=== PATIENT | male | born 1945 | race Caucasian/White ===

== ENCOUNTER 2016-11-02 01:47 | Observation (INO) ==
[2016-11-02] MEDS ORDERED: *HR* Dextrose 50 % in Water (Syg) 50 ML SYRINGE IVP ONE (02:41)
[2016-11-02] MEDS ORDERED: *HR* Dextrose 50 % in Water (Syg) 50 ML SYRINGE ONE (02:41)
[2016-11-02] MEDS ORDERED: D5% in 0.9% NACL 1,000 ML IVC SCH (02:45)
--- NOTE | 2016-11-02 03:15 | Emergency Department Note ---
Disposition Clinical Impression: Hypoglycemia Disposition: Admitted As Inpatient Condition: Fair General Adult HPI - General Chief complaint: ED Neuro Symptoms/Deficit Stated complaint: Low blood sugar Time Seen by Provider: 11/02/16 01:49 Source: patient, EMS Mode of arrival: EMS Limitations: no limitations Nursing Notes Reviewed: Yes Vital Signs Reviewed: Yes - History of Present Illness HPI Narrative: 71-year-old diabetic male who lives at home by himself has had multiple instances of hypoglycemia today. EMS is that his house twice with a glucose of 20. He received an amp of D50 which resolved his symptoms and one hour later they were called back to the house and repeated the episode again. After his arrival here to the emergency department his glucose was 70 which then fell to 40. He received another amp of D50 and was started on D5 saline drip. He denies having any current symptoms. He does not know how much insulin he usually takes. He continually confuses between NovoLog and Levemir and trying to figure out what he is taking. Other medical problems include coronary arterial disease, CHF, diabetes. In addition to his insulin he takes amlodipine aspirin and Plavix. Pain Scale: 0 Improves with: nothing Worsens with: nothing Associated symptoms: Reports: denies other symptoms Treatments Prior to Arrival: none - Related Data Home Medications Medication Instructions Recorded Confirmed Aripiprazole [Abilify] 2 mg PO DAILY 10/28/15 10/28/15 Calcium Carbonate [Tums] 500 mg PO DAILY 10/28/15 10/28/15 DiphenhydraMINE [Benadryl] 25 mg PO TID 10/28/15 10/28/15 Gabapentin [Neurontin] 300 mg PO BID 10/28/15 10/28/15 Hydrocortisone 2.5% CREAM [Cortaid] 1 appl TP BID 10/28/15 10/28/15 Insulin DETEMIR [Levemir] 50 unit SQ BID 10/28/15 10/28/15 Insulin LISPRO [HumaLOG] 6 - 12 units SQ TIDWM 10/28/15 10/28/15 LORazepam [Ativan] 1 mg PO QID 10/28/15 10/28/15 Niacin [Niaspan] 1,000 mg PO HS 10/28/15 10/28/15 Omeprazole [PriLOSEC] 20 mg PO BID 10/28/15 10/28/15 [place] Oil/[place]-3 Fatty Acids 1 cap PO BID 10/28/15 10/28/15 [Fish Oil 500 mg Softgel] Previous Rx's Medication Instructions Recorded Aspirin 81 mg PO DAILY #30 tab.chew 10/31/15 Carvedilol [Coreg] 6.25 mg PO BIDWM #60 tablet 10/31/15 Clopidogrel [Plavix] 75 mg PO DAILY #30 tablet 10/31/15 Furosemide [Lasix] 40 mg PO BIDDIURETIC #60 tablet 10/31/15 Levofloxacin [Levaquin] 500 mg PO DAILY #8 tablet 10/31/15 Lisinopril [Zestril] 2.5 mg PO DAILY #30 tablet 10/31/15 Nicotine Patch [Nicoderm] 14 mg TD DAILY #7 patch.td24 10/31/15 Nitroglycerin 0.4 mg SL Q5MIN PRN #30 tab.subl 10/31/15 Allergies Allergy/AdvReac Type Severity Reaction Status Date / Time Penicillins Allergy Rash Verified 01/17/16 15:59 [id number] Reductase Allergy Hives Verified 01/17/16 15:59 Inhibitor [Statins] All systems ED: reviewed and negative except as stated. Constitutional: Denies: fever Eyes: Denies: vision change ENT ED: Denies: throat pain Cardiovascular: Denies: chest pain Respiratory: Denies: cough Gastrointestinal: Denies: abdominal pain, nausea, vomiting Genitourinary: Denies: dysuria Musculoskeletal: Denies: back pain Integumentary: Denies: rash Neurological: Denies: headache Endocrine: Reports: fatigue Past Medical History - Past Medical History Source: patient Medical history: Reports: CHF, coronary artery disease, diabetes, GERD, hyperlipidemia, hypertension, myocardial infarction Surgical history: Reports: angioplasty/stent, pacemaker/AICD, other Psychiatric history: Reports: anxiety, depression - Social History Smoking Status: Light tobacco smoker Smokeless Tobacco Status: Yes Alcohol use: Reports: none Drug use: Reports: none Physical Exam - General Limitations: no limitations General appearance: alert - Head Head exam: atraumatic - Eye Eye exam: Present: normal appearance, PERRL, EOMI - ENT ENT exam: normal exam, normal oropharynx - Neck Neck exam: Present: normal inspection, full ROM - Chest Chest inspection: Present: normal inspection - Respiratory Respiratory exam: Present: normal lung sounds bilaterally. Absent: respiratory distress - Cardiovascular Cardiovascular exam: Present: regular rate, normal rhythm - Abdominal Exam Abdominal exam: Present: soft, Non-Tender - Extremities Exam Extremities exam: Present: normal inspection - Back Exam Back exam: Present: normal inspection - Neurological Exam Neurological exam: Present: alert, oriented X3, CN II-XII intact - Psychiatric Psychiatric exam: Present: normal affect, normal mood Course Course Narrative: He is alert and he is oriented 3. His glucose did fall to 40 even while he was drinking juice and eating a significant amount of food here in the department. As he has required 3 A of D50 and is now on a D5 drip he will be admitted to the hospital. According to his medical record and the patient he does not take any oral hypoglycemics. - Reevaluation(s) Reevaluation #1: Accepted by Dr Mcdonald Vital Signs Temperature 97.3 F L 11/02/16 01:49 Pulse Rate 65 11/02/16 01:49 Respiratory Rate 16 11/02/16 01:49 Blood Pressure 164/91 11/02/16 01:49 O2 Sat by Pulse Oximetry 97 11/02/16 01:49 Temperature 97.3 F L 11/02/16 01:49 Pulse Rate 70 11/02/16 03:21 Respiratory Rate 18 11/02/16 03:21 Blood Pressure 136/69 11/02/16 03:21 O2 Sat by Pulse Oximetry 96 11/02/16 03:21 Oxygen Delivery Oxygen Delivery Room Air Medical Decision Making - Medical Records Medical records reviewed: Yes I reviewed the patient's medical records. - Lab Data Lab results reviewed: Yes I reviewed the patient's lab results. Result diagrams: 11/02/16 03:37 11/02/16 03:37 Lab Results 11/02/16 11/02/16 11/02/16 Range/Units 01:56 02:38 02:40 WBC (4.3-11.1) K/mcL RBC (4.19-5.50) M/mcL Hgb (12.9-16.9) g/dL Hct (37.5-50.1) % MCV (83.0-100.0) fL MCH (28.0-33.3) pg MCHC (31.6-35.5) g/dL RDW (11.5-14.5) % Plt Count (140-400) K/mcL MPV (9.4-12.4) fL Immature Gran % (0-4) % Seg Neutrophils % % Lymphocytes % % Monocytes % % Eosinophils % % Basophils % % Neutrophils # (1.6-8.9) K/mcL Lymphocytes # (0.6-4.6) K/mcL Monocytes # (0.0-1.3) K/mcL Eosinophils # (0.0-0.6) K/mcL Basophils # (0.0-0.2) K/mcL Sodium (136-145) mEq/L Potassium (3.5-4.5) mEq/L Chloride (98-109) mEq/L Carbon Dioxide (19-29) mEq/L BUN (8-26) mg/dL Creatinine (0.72-1.25) mg/dL Est GFR ( Amer) (> 60) Est GFR (Non-Af Amer) (> 60) BUN/Creatinine Ratio (6-26) Glucose (70-99) mg/dL POC Glucose 70 45 L* 48 L* (58-89) Calculated Osmolality (280-300) Calcium (8.6-10.8) mg/dL Total Bilirubin (0.2-1.2) mg/dL Direct Bilirubin (0.0-0.5) mg/dL Indirect Bilirubin (0.0-1.2) mg/dL AST (5-34) Units/L ALT (0-55) Units/L Alkaline Phosphatase (38-126) Units/L Ammonia (18-72) mcmol/L Serum Total Protein (6.0-8.3) g/dL Albumin (3.5-5.0) g/dL Globulin (2.4-3.5) g/dL Albumin/Globulin Ratio (1.1-2.2) 11/02/16 11/02/16 11/02/16 Range/Units 03:37 03:37 03:37 WBC 7.9 (4.3-11.1) K/mcL RBC 4.72 (4.19-5.50) M/mcL Hgb 14.0 (12.9-16.9) g/dL Hct 42.9 (37.5-50.1) % MCV 90.9 (83.0-100.0) fL MCH 29.7 (28.0-33.3) pg MCHC 32.6 (31.6-35.5) g/dL RDW 13.3 (11.5-14.5) % Plt Count 158 (140-400) K/mcL MPV 11.1 (9.4-12.4) fL Immature Gran % 0.4 (0-4) % Seg Neutrophils % 76.4 % Lymphocytes % 14.2 % Monocytes % 7.7 % Eosinophils % 0.8 % Basophils % 0.5 % Neutrophils # 6.1 (1.6-8.9) K/mcL Lymphocytes # 1.1 (0.6-4.6) K/mcL Monocytes # 0.6 (0.0-1.3) K/mcL Eosinophils # 0.1 (0.0-0.6) K/mcL Basophils # 0.0 (0.0-0.2) K/mcL Sodium 138 (136-145) mEq/L Potassium 3.9 (3.5-4.5) mEq/L Chloride 105 (98-109) mEq/L Carbon Dioxide 22 (19-29) mEq/L BUN 26 (8-26) mg/dL Creatinine 1.38 H (0.72-1.25) mg/dL Est GFR ( Amer) > 60 (> 60) Est GFR (Non-Af Amer) 51 L (> 60) BUN/Creatinine Ratio 19 (6-26) Glucose 115 H (70-99) mg/dL POC Glucose (58-89) Calculated Osmolality 292 (280-300) Calcium 8.9 (8.6-10.8) mg/dL Total Bilirubin 1.3 H (0.2-1.2) mg/dL Direct Bilirubin 0.4 (0.0-0.5) mg/dL Indirect Bilirubin 0.9 (0.0-1.2) mg/dL AST 27 (5-34) Units/L ALT 23 (0-55) Units/L Alkaline Phosphatase 119 (38-126) Units/L Ammonia 30 (18-72) mcmol/L Serum Total Protein 6.7 (6.0-8.3) g/dL Albumin 3.6 (3.5-5.0) g/dL Globulin 3.1 (2.4-3.5) g/dL Albumin/Globulin Ratio 1.2 (1.1-2.2) 11/02/16 11/02/16 Range/Units 03:39 04:24 WBC (4.3-11.1) K/mcL RBC (4.19-5.50) M/mcL Hgb (12.9-16.9) g/dL Hct (37.5-50.1) % MCV (83.0-100.0) fL MCH (28.0-33.3) pg MCHC (31.6-35.5) g/dL RDW (11.5-14.5) % Plt Count (140-400) K/mcL MPV (9.4-12.4) fL Immature Gran % (0-4) % Seg Neutrophils % % Lymphocytes % % Monocytes % % Eosinophils % % Basophils % % Neutrophils # (1.6-8.9) K/mcL Lymphocytes # (0.6-4.6) K/mcL Monocytes # (0.0-1.3) K/mcL Eosinophils # (0.0-0.6) K/mcL Basophils # (0.0-0.2) K/mcL Sodium (136-145) mEq/L Potassium (3.5-4.5) mEq/L Chloride (98-109) mEq/L Carbon Dioxide (19-29) mEq/L BUN (8-26) mg/dL Creatinine (0.72-1.25) mg/dL Est GFR ( Amer) (> 60) Est GFR (Non-Af Amer) (> 60) BUN/Creatinine Ratio (6-26) Glucose (70-99) mg/dL POC Glucose 100 H 158 H (58-89) Calculated Osmolality (280-300) Calcium (8.6-10.8) mg/dL Total Bilirubin (0.2-1.2) mg/dL Direct Bilirubin (0.0-0.5) mg/dL Indirect Bilirubin (0.0-1.2) mg/dL AST (5-34) Units/L ALT (0-55) Units/L Alkaline Phosphatase (38-126) Units/L Ammonia (18-72) mcmol/L Serum Total Protein (6.0-8.3) g/dL Albumin (3.5-5.0) g/dL Globulin (2.4-3.5) g/dL Albumin/Globulin Ratio (1.1-2.2) - Radiology Data Radiology results reviewed: Yes I reviewed the patient's radiology results. Attestation Statement - Attestation Attestation: I, Derik Pantoja MD, personally performed a history and physical exam of the patient and discussed their management with the resident. I reviewed the resident's note and agree with the documented findings, medical decision making , and plan of care. Imaging 1-year-old male presents to the emergency department by [facility] after an episode of hypoglycemia at home. He had an episode earlier tonight's responded. After receiving D50 he refused transport. About an hour later he had another hypoglycemic episode. EMS reports his blood sugar was 20. He received D50 the second time and was brought here. On arrival here his blood sugar was about 70. He continued to drop and on repeat it was down to 45. He received a third amp of D50 and was given food. He is also started on D5 infusion. On examination patient is a well-developed well-nourished elderly male in no acute distress. He is alert but seems pleasantly confused. There is no cyanosis or diaphoresis. Breath sounds are clear and equal bilaterally. Heart regular rate and rhythm. Abdomen soft and nontender with normal bowel sounds. The hospitalist, Dr. Mcdonald, was consulted and accepted admission of the patient.
[2016-11-02 03:49] LABS: Basophils % 0.5 %; Eosinophils # 0.1 K/mcL (0.0-0.6); Eosinophils % 0.8 %; Hematocrit 42.9 % (37.5-50.1); Immature Granulocytes % 0.4 % (0-4); Lymphocytes # 1.1 K/mcL (0.6-4.6); Lymphocytes % 14.2 %; Mean Corpuscular HGB Conc 32.6 g/dL (31.6-35.5); Mean Corpuscular Hemoglobin 29.7 pg (28.0-33.3); Mean Corpuscular Volume 90.9 fL (83.0-100.0); Mean Platelet Volume 11.1 fL (9.4-12.4); Monocytes # 0.6 K/mcL (0.0-1.3); Monocytes % 7.7 %; Neutrophils # 6.1 K/mcL (1.6-8.9); Platelet Count 158 K/mcL (140-400); Red Blood Count 4.72 M/mcL (4.19-5.50); Red Cell Distribution Width 13.3 % (11.5-14.5); Segmented Neutrophils % 76.4 %
[2016-11-02 04:02] LABS: Alanine Aminotransferase 23 Units/L (0-55); Albumin 3.6 g/dL (3.5-5.0); Albumin/Globulin Ratio 1.2 (1.1-2.2); Alkaline Phosphatase 119 Units/L (38-126); Aspartate Amino Transferase 27 Units/L (5-34); BUN/Creatinine Ratio 19 (6-26); Bilirubin,Direct 0.4 mg/dL (0.0-0.5); Bilirubin,Indirect 0.9 mg/dL (0.0-1.2); Bilirubin,Total 1.3 mg/dL (0.2-1.2); Blood Urea Nitrogen 26 mg/dL (8-26); Calcium 8.9 mg/dL (8.6-10.8); Carbon Dioxide 22 mEq/L (19-29); Chloride 105 mEq/L (98-109); Globulin 3.1 g/dL (2.4-3.5); Glucose 115 mg/dL (70-99); Osmolality,Calculated 292 (280-300); Potassium 3.9 mEq/L (3.5-4.5); Sodium 138 mEq/L (136-145); Total Protein 6.7 g/dL (6.0-8.3); eGFR For African Americans > 60 (> 60); eGFR For Non-African Americans 51 (> 60)
[2016-11-02] MEDS ORDERED: Acetaminophen 325 MG TABLET PO PRN (05:42)
[2016-11-02] MEDS ORDERED: Naloxone 0.4 MG/ML INJ IVP PRN (05:42)
[2016-11-02] MEDS ORDERED: D5% in 0.45% NACL 1,000 ML IVC SCH (05:45)
--- NOTE | 2016-11-02 05:55 | Internal Med History&Physical ---
Date of Encounter: 11/02/16 Time of Encounter: 05:49 Assessment and Plan (1) Hypoglycemia Current visit: Yes Status: Acute 1. Continue IVF with dextrose. 2. Hourly accuchecks and PRN. 3. Hold insulin and monitor glucose closely. 4. Consult family life educator. Pt needs education and closer monitoring of his diabetes. 5. Will feed diet and try to wean off IVF with dextrose. (2) Syncope Current visit: Yes Status: Acute 1. Likely due to hypoglycemia. 2. Glucose monitoring and IVF with dextrose as above. 3. Cycle troponins and monitor telemetry. Qualifiers: Syncope type: unspecified Qualified Code(s): R55 - Syncope and collapse (3) CAD (coronary artery disease) Current visit: No Status: Chronic 1. Will obtain EKG and monitor on telemetry. 2. No complaints of angina. 3. Verify home meds and continue as appropriate. Qualifiers: Coronary Disease-Associated Artery/Lesion type: [place] artery [place] vs. transplanted heart: [place] heart Associated angina: angina presence unspecified Qualified Code(s): I25.10 - Atherosclerotic heart disease of [place] coronary artery without angina pectoris (4) Type 2 diabetes mellitus Current visit: No Status: Chronic 1. Pt needs education on diet, monitoring, dosing of insulin, and chronic management of disease. 2. Consult family life educator. Qualifiers: Diabetes mellitus complication status: with neurologic complications Diabetes mellitus complication detail: with unspecified neuropathy Diabetes mellitus m[facility] insulin use: with long term acute care registered nurse use Qualified Code(s): E11.40 - Type 2 diabetes mellitus with diabetic neuropathy, unspecified; Z79.4 - long term acute care registered nurse (current) use of insulin (5) DVT prophylaxis Current visit: Yes Status: Acute 1. Heparin SQ. Internal Medicine - H&P: HPI Chief complaint: unresponsive/low glucose Admitted From: Emergency Dept Plans for Post Hospital Care: Home History of present illness: Mr. Washington is a 71 year old male who presented to the ER [facility] with complaints of low glucose and near-syncope/syncope. Patient had multiple episodes of low glucose over last 24 hours and EMS came to his house to assess him. With his last episode of hypoglycemia, he was noted to have level of 20. He was subsequently treated with dextrose and brought to the ER. Patient expressed confusion about his insulin medication, monitoring, and dosing administration to the ER staff. As such, patient was admitted to the hospitalist service for further treatment and monitoring of his glucose along with proper education of his diabetes. Upon my assessment of the patient, he is somnolent but easily arousable. He is alert and oriented 4 now. He denies any fevers, cough, chills, vomiting, or diarrhea. He admits to having some jitters, weakness, effusion, and one episode of syncope earlier today, which he attributed to his low glucose. He is unsure of dosing of his insulin and/or the type of insulin he takes. He only checks his glucose roughly once a day, and sometimes he does not check it at all. His diet is sporadic. He lives alone and does not have any help to check on him and/or his glucose levels. Please note that his medication list is not yet verified and he is unable to list his medications appropriately and/or verify the medication. Past Med Surg Social Fam HX - Past Medical History Source: patient, old records reviewed Medical history: CHF, coronary artery disease, diabetes, GERD, hyperlipidemia, hypertension, myocardial infarction Psychiatric history: anxiety, depression - Past Surgical History Surgical History: angioplasty/stent, pacemaker/AICD - Social History Smoking Status: Light tobacco smoker Smokeless Tobacco Status: Yes Alcohol use: none Drug use: none Current living situation: Home - Independent Activity Level: Independent ambulation Recent Out of Country Travel Within the Last 8 Weeks: No - Family History Father Living Status: Hx Family Cardiac Disorders: Yes (HTN) Hx Family Endocrine Disorder: Yes (DM) Hx Family Neurologic Disorders: Yes (CVA) Mother Living Status: Hx Family Cardiac Disorders: Yes (HTN) Hx Family Cancer: Yes (Ovarian) Hx Family GI Disorders: Yes (GERD) Brother Living Status: Hx Family Cardiac Disorders: Yes (father) Hx Family Respiratory Disorders: Yes (mother) Hx Family Cancer: Yes (mother) Hx Family GI Disorders: No Hx Family Endocrine Disorder: Yes (diabetes father,self) Hx Family Neuromuscular Disorders: No Hx Family Neurologic Disorders: No Hx Family HEENT Disorders: No Hx Family Autoimmune Disorders: No Internal Medicine - H&P: Meds Aripiprazole [Abilify] 2 mg PO DAILY 10/28/15 [History] Calcium Carbonate [Tums] 500 mg PO DAILY 10/28/15 [History] DiphenhydraMINE [Benadryl] 25 mg PO TID 10/28/15 [History] Gabapentin [Neurontin] 300 mg PO BID 10/28/15 [History] Hydrocortisone 2.5% CREAM [Cortaid] 1 appl TP BID 10/28/15 [History] Insulin DETEMIR [Levemir] 50 unit SQ BID 10/28/15 [History] Insulin LISPRO [HumaLOG] 6 - 12 units SQ TIDWM 10/28/15 [History] LORazepam [Ativan] 1 mg PO QID 10/28/15 [History] Niacin [Niaspan] 1,000 mg PO HS 10/28/15 [History] Omeprazole [PriLOSEC] 20 mg PO BID 10/28/15 [History] [place] Oil/[place]-3 Fatty Acids [Fish Oil 500 mg Softgel] 1 cap PO BID 10/28/15 [ History] Aspirin 81 mg PO DAILY #30 tab.chew 10/31/15 [Rx] Carvedilol [Coreg] 6.25 mg PO BIDWM #60 tablet 10/31/15 [Rx] Clopidogrel [Plavix] 75 mg PO DAILY #30 tablet 10/31/15 [Rx] Furosemide [Lasix] 40 mg PO BIDDIURETIC #60 tablet 10/31/15 [Rx] Levofloxacin [Levaquin] 500 mg PO DAILY #8 tablet 10/31/15 [Rx] Lisinopril [Zestril] 2.5 mg PO DAILY #30 tablet 10/31/15 [Rx] Nicotine Patch [Nicoderm] 14 mg TD DAILY #7 patch.td24 10/31/15 [Rx] Nitroglycerin 0.4 mg SL Q5MIN PRN #30 tab.subl 10/31/15 [Rx] Allergies Penicillins Allergy (Verified 01/17/16 15:59) Rash Npagett-Gws-Dyr Reductase Inhibitor [Statins] Allergy (Verified 01/17/16 15:59) Hives - Constitutional Constitutional: no chills, no fever(s) - EENT Eyes: no blurry vision, no change in vision Ears: no ear pain, no tinnitus Nose, mouth and throat: no nasal congestion, no sinus pressure, no sore throat - Cardiovascular Cardiovascular ROS IM: lightheadedness, syncope, no chest pain, no dyspnea, no dyspnea on exertion, no palpitations - Respiratory Respiratory: no cough, no dyspnea, no hemoptysis, no excessive phlegm production - Gastrointestinal Gastrointestinal: no abdominal pain, no diarrhea, no heartburn, no hematemesis, no hematochezia, no melena, no nausea, no vomiting - Genitourinary Genitourinary ROS male: no dysuria, no flank pain, no hematuria - Musculoskeletal Musculoskeletal ROS IM: muscle weakness, no arthralgias, no muscle cramps - Integumentary Integumentary IM: no rash, no jaundice - Neurological Neurological ROS: dizziness, weakness, no focal weakness, no frequent falls, no vertigo - Psychiatric Psychiatric: no anxiety, no depression - Endocrine Endocrine IM: no cold intolerance, no heat intolerance, no polydipsia - Hematologic/Lymphatic Hematologic/Lymphatic: no lymphadenopathy - Allergic/Immunologic Allergic/Immunologic: no wheezing, no GI upset with certain foods - Constitutional Vitals: Temp Pulse Resp BP Pulse Ox 97.3 F L 70 18 136/69 96 11/02/16 01:49 11/02/16 03:21 11/02/16 03:21 11/02/16 03:21 11/02/16 03:21 General appearance: Present: A&O X 3, no acute distress, answers questions appropriately - Head Head exam: Present: atraumatic, normal inspection - Expanded Head Exam Head exam expanded: Absent: abrasion, contusion, general tenderness - Eye Eye exam: Present: EOMI, normal appearance, PERRL. Absent: scleral icterus Pupils: Present: normal accommodation - ENT ENT exam: Present: mucous membranes dry, normal exam, normal oropharynx - Neck Neck exam general surgery: Present: full ROM, supple. Absent: lymphadenopathy, normal inspection, tenderness, nuchal rigidity, thyromegaly - Respiratory Respiratory exam: Present: CTAB. Absent: chest wall tenderness, rales, rhonchi , wheezes - Cardiovascular Cardiovascular exam: Present: RRR, +S1, +S2. Absent: diastolic murmur, JVD, systolic murmur - GI/Abdominal GI/Abdominal exam: Present: normal bowel sounds, soft. Absent: hepatomegaly, splenomegaly, tenderness - Extremities Exam Extremities exam: Present: full ROM, normal capillary refill, warm. Absent: calf tenderness, joint swelling - Back Exam Back exam: Absent: CVA tenderness (L), CVA tenderness (R), paraspinal tenderness - Neurological Exam Neurological exam: Present: alert, CN II-XII intact, oriented X3, no focal deficits - Psychiatric Psychiatric exam: Present: normal affect, normal mood - Skin Skin exam: Present: dry, warm. Absent: abrasion, rash Internal Med - H&P Results - Labs CBC & Chem 7: 11/02/16 03:37 11/02/16 03:37 - Diagnostic Studies Chest x-ray Status: image reviewed by me (lungs clear)
[2016-11-02 06:46] LABS: Bilirubin,Urine Negative (Negative); Blood,Urine Negative (Negative); Clarity,Urine Clear (Clear); Color,Urine Yellow (Yellow); Glucose,Urine (UA) 100 mg/dL (Normal); Ketones,Urine Negative (Negative); Leukocyte Esterase,Urine Negative (Negative); Nitrite,Urine Negative (Negative); Protein,Urine Negative (Neg-Trace); Specific Gravity,Urine 1.015 (1.010-1.025); Urobilinogen,Urine Normal (Normal)
[2016-11-02] MEDS ORDERED: *HR* Heparin 5,000 UNIT/ML VIAL SQ SCH (07:00)
[2016-11-02] MEDS ORDERED: Aspirin 81 MG TAB.CHEW PO SCH (09:00)
[2016-11-02] MEDS ORDERED: Nitroglycerin 0.4 MG TAB.SUBL SL PRN (10:39)
[2016-11-02] MEDS ORDERED: Ipratropium/Albuterol Neb 3 ML IH PRN (10:39)
[2016-11-02 10:48] VITALS: BP 152/74
--- NOTE | 2016-11-02 13:43 | Discharge Summary ---
Date of Encounter: 11/02/16 Time of Encounter: 13:40 - Discharge Diagnosis (1) Hypoglycemia Priority: Primary Status: Acute (2) Syncope Priority: Secondary Status: Acute Qualifiers: Syncope type: unspecified Qualified Code(s): R55 - Syncope and collapse (3) CAD (coronary artery disease) Priority: Secondary Status: Chronic Qualifiers: Coronary Disease-Associated Artery/Lesion type: [place] artery [place] vs. 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 - Discharge Medications Home Medications: Aripiprazole [Abilify] 2 mg PO DAILY 10/28/15 [History] Calcium Carbonate [Tums] 500 mg PO DAILY 10/28/15 [History] DiphenhydraMINE [Benadryl] 25 mg PO TID 10/28/15 [History] Gabapentin [Neurontin] 300 mg PO BID 10/28/15 [History] Hydrocortisone 2.5% CREAM [Cortaid] 1 appl TP BID 10/28/15 [History] Insulin DETEMIR [Levemir] 50 unit SQ BID 10/28/15 [History] LORazepam [Ativan] 1 mg PO QID 10/28/15 [History] Niacin [Niaspan] 1,000 mg PO HS 10/28/15 [History] Omeprazole [PriLOSEC] 20 mg PO BID 10/28/15 [History] [place] Oil/[place]-3 Fatty Acids [Fish Oil 500 mg Softgel] 1 cap PO BID 10/28/15 [ History] Aspirin 81 mg PO DAILY #30 tab.chew 10/31/15 [Rx] Carvedilol [Coreg] 6.25 mg PO BIDWM #60 tablet 10/31/15 [Rx] Clopidogrel [Plavix] 75 mg PO DAILY #30 tablet 10/31/15 [Rx] Furosemide [Lasix] 40 mg PO BIDDIURETIC #60 tablet 10/31/15 [Rx] Levofloxacin [Levaquin] 500 mg PO DAILY #8 tablet 10/31/15 [Rx] Lisinopril [Zestril] 2.5 mg PO DAILY #30 tablet 10/31/15 [Rx] Nicotine Patch [Nicoderm] 14 mg TD DAILY #7 patch.td24 10/31/15 [Rx] Nitroglycerin 0.4 mg SL Q5MIN PRN #30 tab.subl 10/31/15 [Rx] Albuterol Sulfate [Ventolin Hfa] 2 puff IH Q4H PRN 11/02/16 [History] Ipratropium/Albuterol Neb [Duoneb] 3 ml IH Q6HR PRN 11/02/16 [History] Allergies/Adverse Reactions: Allergies Penicillins Allergy (Verified 01/17/16 15:59) Rash Eihgkjg-Ksm-Tan Reductase Inhibitor [Statins] Allergy (Verified 01/17/16 15:59) Hives Procedures/tests Complete & Pending: Procedures Performed prior 72 hours Category Date Time Status ECG 12 lead ECG [ECG] AM 0600 Y 11/02/16 06:00 Ordered Date of admission: 11/02/16 04:36 Primary care physician: Denver Ellington MD Consults: 11/02/16 05:47 Consult to Help Desk Assistant [CONS] Routine Comment: needs education and strict monitoiring of diabetes Discharging clinician: João Salinas Anticipated date of discharge: 11/02/16 - Patient Status Disposition: Home Health Service Condition: Good Functional capacity at discharge: independent ambulation Overall status at discharge: patient is progressing back to baseline - Discharge Instructions Instructions: Diabetes Mellitus Type 2 in Adults (DC) Follow Up With: Denver Ellington MD [Primary Care Provider] - (In 1-2 weeks) - Diet and Activity Activity: resume usual activities as tolerated Diet: diabetic diet, low fat, low cholesterol, low salt diet Hospital course: Mr. Washington is a 71 year old male with history of type 2 diabetes mellitus, coronary artery disease, who was hospitalized after an episode of syncope. At that time his blood sugars were noted to be very low. He improved after he received dextrose and was treated with dextrose infusions in the ER. He has had no further episodes of hypoglycemia. The patient has been provided diabetes education especially as it does not appear that the patient was taking insulin as prescribed. According to his primary care provider's notes as provided by the diabetic nurse, the patient was supposed to be taking 50 units of Levemir twice daily for his diabetes and was to stop short-acting insulin but the patient says that he has been continuing to take short-acting insulin which could be contributing to his hypoglycemic episodes. The patient has been asked to stop taking short-acting insulin and agrees to do so. He will follow-up with his primary care provider for further management. At this time as his blood sugars have remained stable without any dextrose infusions and he has not had any further episodes of hypoglycemia, he stable to be discharged home. - Time Spent with Patient Total time spent providing and/or coordinating discharge services: Less than 30 minutes (25 min) - Constitutional Vitals: Temp Pulse Resp BP Pulse Ox 98.4 F 70 16 152/74 98 11/02/16 10:47 11/02/16 10:47 11/02/16 10:47 11/02/16 10:47 11/02/16 10:47 General appearance: Present: A&O X 3, no acute distress, answers questions appropriately - Respiratory Respiratory exam: Present: CTAB. Absent: accessory muscle use, rales, rhonchi, wheezes - Cardiovascular Cardiovascular exam: Present: RRR, +S1, +S2. Absent: diastolic murmur, gallop, rubs, systolic murmur - GI/Abdominal GI/Abdominal exam: Present: normal bowel sounds, soft, no peritoneal signs. Absent: distended, tenderness - Extremities Exam Extremities exam: Present: warm, radial pulses palpable and symetrical. Absent : calf tenderness, cyanotic, pedal edema - Attending Attestation This document has been at least partially created by [employer] recognition technology by Dr. Salinas. Errors in grammar, wording or other phrases may exist. If errors are found after the documentation is signed, they will be addressed individually in the addendum section of this document when appropriate.
[2016-11-02] MEDS ORDERED: Furosemide 40 MG TABLET PO SCH (17:00)
[2016-11-02] MEDS ORDERED: Gabapentin 300 MG CAPSULE PO SCH (21:00)
[2016-11-02] MEDS ORDERED: NON-FORMULARY MEDICATION 1 EACH EACH (Insulin Detemir 50 UNIT) SQ SCH (21:00)
[2016-11-02] MEDS ORDERED: Insulin DETEMIR 100 UNIT/ML X5UNITS SQ SCH (21:00)
[2016-11-02] MEDS ORDERED: Niacin (24 HR) 500 MG TAB.ER.24H PO SCH (21:00)
[2016-11-03] MEDS ORDERED: Nicotine 14 MG PATCH.TD24 TD SCH (09:00)
[2016-11-03] MEDS ORDERED: ARIPiprazole 2 MG TABLET PO SCH (09:00)
== END 2016-11-02 14:07 | disposition home or self-care (01) ==
LOC: EMEROO 01:47 → 3BNU 01:47 → SUATTDRO 04:36 → 3BNU 06:50
PROVIDERS: ADMIT Nurse Practitioner Family; ATTEND Internal Medicine

== ENCOUNTER 2017-06-01 09:38 | Inpatient (IN) ==
--- NOTE | 2017-06-01 09:46 | Emergency Department Note ---
Disposition Clinical Impression: Delirium due to general medical condition, Elevated troponin Syncope Qualifiers: Encounter type: initial encounter CHF (congestive heart failure) Qualifiers: Congestive heart failure type: unspecified congestive heart failure type Congestive heart failure chronicity: acute on chronic Qualified Code(s): I50.9 - Heart failure, unspecified CAD (coronary artery disease) Qualifiers: Coronary Disease-Associated Artery/Lesion type: unspecified vessel or lesion type [place] vs. transplanted heart: [place] heart Associated angina: with unstable angina Qualified Code(s): I25.110 - Atherosclerotic heart disease of [place] coronary artery with unstable angina pectoris Disposition: Admitted As Inpatient Condition: Fair Referrals: Denver Ellington MD [Primary Care Provider] - Forms: ED Satisfaction Letter General Adult HPI - General Chief complaint: ED Altered Mental Status Stated complaint: HYPOGLYCEMIA Time Seen by Provider: 06/01/17 09:40 Nursing Notes Reviewed: Yes Vital Signs Reviewed: Yes - History of Present Illness HPI Narrative: Chief complaint is low blood sugar. History this is a 72-year-old gentleman who is brought in by EMS. He was found at home unresponsive. They noticed that blood sugar was 37. Begin dextrose he was combative. Now he is not better he states that he took his insulin this morning cannot tell me how much or when did not eat. He does not room or when he got up this morning he denies any pain in his other injuries. Medics state the last time this happened he was in his doctor's office when they ran I [place] did take a while for him to come back to baseline. Patient denies any other problems this time he does state he has a history of high blood pressure. He denies any falls or trauma. Past medical history as reviewed the list reviewed in nurse's notes reviewed these are all limited due to his history obtained from medics and past history from. The hospital. - Related Data Home Medications Medication Instructions Recorded Confirmed ARIPiprazole [Abilify] 2 mg PO DAILY 10/28/15 06/01/17 Gabapentin [Neurontin] 300 mg PO BID 10/28/15 06/01/17 Insulin DETEMIR [Levemir] 50 unit SQ BID 10/28/15 06/01/17 LORazepam [Ativan] 1 mg PO QID 10/28/15 06/01/17 Niacin [Niaspan] 1,000 mg PO HS 10/28/15 06/01/17 Omeprazole [PriLOSEC] 20 mg PO BID 10/28/15 06/01/17 [place] Oil/[place]-3 Fatty Acids 1 cap PO BID 10/28/15 06/01/17 [Fish Oil 500 mg Softgel] Albuterol Sulfate [Ventolin Hfa] 2 puff IH Q4H PRN 11/02/16 06/01/17 Ipratropium/Albuterol Neb [Duoneb] 3 ml IH Q6HR PRN 11/02/16 06/01/17 Previous Rx's Medication Instructions Recorded Aspirin 81 mg PO DAILY #30 tab.chew 10/31/15 Carvedilol [Coreg] 6.25 mg PO BIDWM #60 tablet 10/31/15 Clopidogrel [Plavix] 75 mg PO DAILY #30 tablet 10/31/15 Furosemide [Lasix] 40 mg PO BIDDIURETIC #60 tablet 10/31/15 Lisinopril [Zestril] 2.5 mg PO DAILY #30 tablet 10/31/15 Nitroglycerin 0.4 mg SL Q5MIN PRN #30 tab.subl 10/31/15 Allergies Allergy/AdvReac Type Severity Reaction Status Date / Time Penicillins Allergy Rash Verified 01/17/16 15:59 Ulfkkbx-Dbf-Toy Reductase Allergy Hives Verified 01/17/16 15:59 Inhibitor [Statins] Review of Systems: Review of systems are positive for altered mental status and low blood sugar which is now improving. All systems ED: reviewed and negative except as stated. Past Medical History - Past Medical History Medical history: Reports: CHF, coronary artery disease, diabetes, GERD, hyperlipidemia, hypertension, myocardial infarction Surgical history: Reports: angioplasty/stent, pacemaker/AICD Psychiatric history: Reports: anxiety, depression - Social History Smoking Status: Former smoker Smokeless Tobacco Status: Yes Alcohol use: Reports: none Drug use: Reports: none Physical Exam Temperature is 98.7, pulse is 74, respirations 22, BP 161/95, pulse ox 95%, weighs 81.[address] but not to time. Duringit is warm outside. He thought it was Saturday and Saturday. General he is awake nontoxic in appearance appears somewhat disheveled. HEENT his extremities are dry no scleral icterus no signs of trauma midline airway Cardia vascular is regular rate and rhythm without rubs or JVD Lungs are clear to auscultation bilaterally abdomen soft nonsurgical good bowel sounds no masses Extremities are present 4 good distal pulses Refill is brisk no signs of trauma he does not IV in place in his upper extremity secondary to squat. Dermatologic skin is warm and dry no rash peak or jaundice Neurologic no focal deficits except for the deficit on knowing time on person place and time. He moves all extremities and shows no focal deficits here but is not very cooperative with the exam altogether. Course Vital Signs Temperature 98.7 F 06/01/17 09:39 Pulse Rate 74 06/01/17 09:39 Respiratory Rate 22 06/01/17 09:39 Blood Pressure 161/95 06/01/17 09:39 O2 Sat by Pulse Oximetry 95 06/01/17 09:39 Temperature 98.7 F 06/01/17 09:39 Pulse Rate 80 06/01/17 12:37 Respiratory Rate 22 06/01/17 12:37 Blood Pressure 143/84 06/01/17 12:37 O2 Sat by Pulse Oximetry 94 06/01/17 12:37 Oxygen Delivery Oxygen Delivery Room Air Medical Decision Making - MDM Narrative Medical decision making narrative: We will order him eat breakfast will check some basic labs reassess. We will see finger in touch with any family members. He may need social service intervention. Patient has not an EKG done at 0951 hours: Sinus rhythm, first-degree AV block with [place] interval 243, he does have anterior lateral changes in his EKG but no signs of acute ischemia. He has a QRS of 120 and a QTC of 425, compared his EKG with one which was done a year ago [place] interval at that time was 208 he had the same changes on EKG that he does today though the pattern on the EKG from 2016 showed baseline wander and artifact. Patient denies any chest pain. 1020 hrs.: Patient's labs are back and looked good. He is eating breakfast now. We will recheck a blood sugar after breakfast and reassessed with him. 1030 hrs.: Spoke with licensed clinical social worker and they will follow up with the patient this week. Chest X-Ray 06/01/17 09:40 IMPRESSION: Findings are suggestive of congestive heart failure. D/ / Bety Yan MD / Bety Yan MD Interpreting Provider: Bety Yan MD 1110 hrs.: Patient is doing better he still remains confused have tried to see what his baseline is in his past history and uncertain of that though this presentation sounds like several episodes in the past. His chest x-ray looks like CHF but he states he is not short of breath he does have some crackles in the bases and mattering and a BMP and troponin were a CT has had. Unless he has a family matter that can verify this is his baseline I think we should try to bring him in the hospital at this point status change also the syncope and hypoglycemia as I think if he goes home this is going to happen to him again. Patient's troponin is positive. He denies any chest pain admitting him aspirin because he does not think he took any today. His blood pressures been elevated also some putting back on his blood pressure medications also given a dose of Lasix and will admit him. He is in agreement with plan. Impression is syncope was due to low blood sugar. Elevated troponin and rule out ACS, hypoglycemia history of same. Patient's critical care time billable procedures 35 minutes. Chest X-Ray 06/01/17 09:40 IMPRESSION: Findings are suggestive of congestive heart failure. D/ / Bety Yan MD / Bety Yan MD Interpreting Provider: Bety Yan MD Head CT 06/01/17 11:08 IMPRESSION: 1. No acute intracranial abnormality. 2. Mild age-appropriate diffuse atrophy with moderate chronic small vessel ischemic changes D/ / Jeffy Avery MD / Jeffy Avery MD Interpreting Provider: Jeffy Avery MD 1256 hrs.: Repeated an EKG due to the quality of the first one this EKG shows sinus rhythm with first-degree AV block rate is 87 the KS interval 264 he does have Q waves in the inferior leads which he had in the first EKG but did not show those as well on the EKG from 2016 but also he had a lot of baseline artifact. He did have the anterior lateral changes noted but no signs of acute ischemia. His QRS is 116 QTC is 411. Denies any chest pain but does have elevated troponin. Spoke with hospitalist to bring him into the hospital. He did get aspirin here. He was remained pain-free. Patient's agreement with this plan. - Lab Data Result diagrams: 06/01/17 09:52 06/01/17 08:52 Lab Results 06/01/17 06/01/17 06/01/17 Range/Units 08:52 08:52 09:51 WBC (4.3-11.1) K/mcL RBC (4.19-5.50) M/mcL Hgb (12.9-16.9) g/dL Hct (37.5-50.1) % MCV (83.0-100.0) fL MCH (28.0-33.3) pg MCHC (31.6-35.5) g/dL RDW (11.5-14.5) % Plt Count (140-400) K/mcL MPV (9.4-12.4) fL Immature Gran % (0-4) % Seg Neutrophils % % Lymphocytes % % Monocytes % % Eosinophils % % Basophils % % Neutrophils # (1.6-8.9) K/mcL Lymphocytes # (0.6-4.6) K/mcL Monocytes # (0.0-1.3) K/mcL Eosinophils # (0.0-0.6) K/mcL Basophils # (0.0-0.2) K/mcL Sodium 136 (136-145) mEq/L Potassium 4.0 (3.5-4.5) mEq/L Chloride 107 (98-109) mEq/L Carbon Dioxide 23 (19-29) mEq/L BUN 14 (8-26) mg/dL Creatinine 1.09 (0.72-1.25) mg/dL Est GFR ( Amer) > 60 (> 60) Est GFR (Non-Af Amer) > 60 (> 60) BUN/Creatinine Ratio 13 (6-26) Glucose 109 H (70-99) mg/dL POC Glucose (58-89) Calculated Osmolality 283 (280-300) Calcium 8.9 (8.6-10.8) mg/dL Total Bilirubin 1.3 H (0.2-1.2) mg/dL AST 16 (5-34) Units/L ALT 13 (0-55) Units/L Alkaline Phosphatase 116 (38-126) Units/L Troponin I 0.10 H* (0-0.03) ng/mL B-Natriuretic Peptide (0-100) pg/mL Serum Total Protein 6.5 (6.0-8.3) g/dL Albumin 3.3 L (3.5-5.0) g/dL Globulin 3.2 (2.4-3.5) g/dL Albumin/Globulin Ratio 1.0 L (1.1-2.2) Urine Color Yellow (Yellow) Urine Clarity Clear (Clear) Urine pH 6.0 (5.0-8.0) pH Units Ur Specific [place] 1.016 (1.010-1.025) Urine Protein Negative (Neg-Trace) mg/dL Urine Glucose (UA) 100 H (Normal) mg/dL Urine Ketones Negative (Negative) mg/dL Urine Blood Negative (Negative) Urine Nitrite Negative (Negative) Urine Bilirubin Negative (Negative) Urine Urobilinogen Normal (Normal) mg/dL Ur Leukocyte Esterase Negative (Negative) Ur Culture Indicated? NO (NO) Ethyl Alcohol < 10 (0-10) mg/dL 06/01/17 06/01/17 06/01/17 Range/Units 09:52 09:52 11:09 WBC 7.8 (4.3-11.1) K/mcL RBC 4.87 (4.19-5.50) M/mcL Hgb 13.1 (12.9-16.9) g/dL Hct 41.4 (37.5-50.1) % MCV 85.0 (83.0-100.0) fL MCH 26.9 L (28.0-33.3) pg MCHC 31.6 (31.6-35.5) g/dL RDW 14.0 (11.5-14.5) % Plt Count 203 (140-400) K/mcL MPV 11.0 (9.4-12.4) fL Immature Gran % 0.6 (0-4) % Seg Neutrophils % 74.2 % Lymphocytes % 14.4 % Monocytes % 8.8 % Eosinophils % 1.4 % Basophils % 0.6 % Neutrophils # 5.8 (1.6-8.9) K/mcL Lymphocytes # 1.1 (0.6-4.6) K/mcL Monocytes # 0.7 (0.0-1.3) K/mcL Eosinophils # 0.1 (0.0-0.6) K/mcL Basophils # 0.1 (0.0-0.2) K/mcL Sodium (136-145) mEq/L Potassium (3.5-4.5) mEq/L Chloride (98-109) mEq/L Carbon Dioxide (19-29) mEq/L BUN (8-26) mg/dL Creatinine (0.72-1.25) mg/dL Est GFR ( Amer) (> 60) Est GFR (Non-Af Amer) (> 60) BUN/Creatinine Ratio (6-26) Glucose (70-99) mg/dL POC Glucose 131 H (58-89) Calculated Osmolality (280-300) Calcium (8.6-10.8) mg/dL Total Bilirubin (0.2-1.2) mg/dL AST (5-34) Units/L ALT (0-55) Units/L Alkaline Phosphatase (38-126) Units/L Troponin I (0-0.03) ng/mL B-Natriuretic Peptide 1016 H (0-100) pg/mL Serum Total Protein (6.0-8.3) g/dL Albumin (3.5-5.0) g/dL Globulin (2.4-3.5) g/dL Albumin/Globulin Ratio (1.1-2.2) Urine Color (Yellow) Urine Clarity (Clear) Urine pH (5.0-8.0) pH Units Ur Specific [place] (1.010-1.025) Urine Protein (Neg-Trace) mg/dL Urine Glucose (UA) (Normal) mg/dL Urine Ketones (Negative) mg/dL Urine Blood (Negative) Urine Nitrite (Negative) Urine Bilirubin (Negative) Urine Urobilinogen (Normal) mg/dL Ur Leukocyte Esterase (Negative) Ur Culture Indicated? (NO) Ethyl Alcohol (0-10) mg/dL
[2017-06-01 09:58] LABS: Basophils # 0.1 K/mcL (0.0-0.2); Basophils % 0.6 %; Eosinophils # 0.1 K/mcL (0.0-0.6); Eosinophils % 1.4 %; Hematocrit 41.4 % (37.5-50.1); Hemoglobin 13.1 g/dL (12.9-16.9); Immature Granulocytes % 0.6 % (0-4); Lymphocytes # 1.1 K/mcL (0.6-4.6); Lymphocytes % 14.4 %; Mean Corpuscular HGB Conc 31.6 g/dL (31.6-35.5); Mean Corpuscular Hemoglobin 26.9 pg (28.0-33.3); Monocytes # 0.7 K/mcL (0.0-1.3); Monocytes % 8.8 %; Neutrophils # 5.8 K/mcL (1.6-8.9); Platelet Count 203 K/mcL (140-400); Red Blood Count 4.87 M/mcL (4.19-5.50); Segmented Neutrophils % 74.2 %
[2017-06-01 10:10] LABS: Alanine Aminotransferase 13 Units/L (0-55); Albumin 3.3 g/dL (3.5-5.0); Alkaline Phosphatase 116 Units/L (38-126); Aspartate Amino Transferase 16 Units/L (5-34); BUN/Creatinine Ratio 13 (6-26); Bilirubin,Total 1.3 mg/dL (0.2-1.2); Blood Urea Nitrogen 14 mg/dL (8-26); Calcium 8.9 mg/dL (8.6-10.8); Carbon Dioxide 23 mEq/L (19-29); Chloride 107 mEq/L (98-109); Globulin 3.2 g/dL (2.4-3.5); Glucose 109 mg/dL (70-99); Osmolality,Calculated 283 (280-300); Sodium 136 mEq/L (136-145); Total Protein 6.5 g/dL (6.0-8.3); eGFR For African Americans > 60 (> 60); eGFR For Non-African Americans > 60 (> 60)
[2017-06-01 10:11] LABS: Ethanol < 10 mg/dL (0-10)
[2017-06-01 10:17] LABS: Bilirubin,Urine Negative (Negative); Blood,Urine Negative (Negative); Clarity,Urine Clear (Clear); Color,Urine Yellow (Yellow); Glucose,Urine (UA) 100 mg/dL (Normal); Ketones,Urine Negative (Negative); Leukocyte Esterase,Urine Negative (Negative); Nitrite,Urine Negative (Negative); Protein,Urine Negative (Neg-Trace); Specific Gravity,Urine 1.016 (1.010-1.025); Urobilinogen,Urine Normal (Normal)
[2017-06-01] MEDS ORDERED: Furosemide 20 MG/2 ML VIAL IVP ONE (11:39)
[2017-06-01] MEDS ORDERED: Aspirin 81 MG TAB.CHEW PO STA (11:40)
[2017-06-01] MEDS ORDERED: Naloxone 0.4 MG/ML INJ IVP PRN (14:54)
[2017-06-01] MEDS ORDERED: Ondansetron 4 MG/2 ML VIAL IVP PRN (14:54)
[2017-06-01] MEDS ORDERED: Ipratropium/Albuterol Neb 3 ML IH PRN (14:56)
[2017-06-01] MEDS ORDERED: Nitroglycerin 0.4 MG TAB.SUBL SL PRN (14:56)
[2017-06-01] MEDS ORDERED: D5% in Water 1,000 ML IVC PRN (14:58)
[2017-06-01] MEDS ORDERED: Dextrose Gel 15 GM PO PRN ×2 (14:58)
[2017-06-01] MEDS ORDERED: *HR* Dextrose 50 % in Water (Syg) 50 ML SYRINGE IVP PRN (14:58)
[2017-06-01] MEDS ORDERED: Albuterol 2.5 MG/3 ML NEBULIZER IH PRN (14:58)
--- NOTE | 2017-06-01 15:02 | Internal Med History&Physical ---
<Keisha Bae - Last Filed: 06/01/17 16:06> Date of Encounter: 06/01/17 Time of Encounter: 15:00 Assessment and Plan (1) Acute exacerbation of CHF (congestive heart failure) Current visit: Yes Status: Acute 1 patient does not have any chest pain offered to breath at this time however he has not been compliant with low-sodium diet as well as he is not been taking his Lasix. His BNP is elevated as well chest x-ray is indicative of CHF. His lung sounds do have rales bilaterally. He was given IM IV Lasix in the ER which we will continue 20 mg twice a day 2 we will monitor intake and output and daily weights [address] on 1500 mL fluid restriction 4 low-sodium diet 5 last echo dated 03/17/2016 did reveal an EF of 2024% with severe diastolic and systolic dysfunction. We will repeat an echo. 6 continuous cardiac monitoring 7 we will trend troponins 8 oxygen as needed maintain SPO2 greater than 92% 9 continue with Coreg Qualifiers: Congestive heart failure type: unspecified congestive heart failure type Qualified Code(s): I50.9 - Heart failure, unspecified (2) Hypoglycemia Current visit: Yes Status: Resolved 1 this has resolved we will continue to monitor blood sugars old basal insulin for now. Replace with sliding scale insulin. 2 consult medical social consultant (3) CAD (coronary artery disease) Current visit: Yes Status: Chronic 1 patient does have history of coronary disease with stent placement he had anterior wall STEMI last year with [facility]OU in [place]. Troponin was elevated at 0.10 and suspect this is related to CHF as well as his CK D. However we will continue to monitor troponins 2 we will continue with dual antiplatelet therapy with aspirin and Plavix. We will continue with Coreg we will hold statin patient does have allergy continue with nitrates 3 oxygen as needed to maintain SPO2 greater than 92% Qualifiers: Coronary Disease-Associated Artery/Lesion type: unspecified vessel or lesion type [place] vs. transplanted heart: [place] heart Associated angina: with unstable angina Qualified Code(s): I25.110 - Atherosclerotic heart disease of [place] coronary artery with unstable angina pectoris (4) Tobacco abuse Current visit: No Status: Chronic Patient continues to smoke approximately half a pack a day. Encourage patient to stop smoking does not appear to be interested at this time. (5) Type 2 diabetes mellitus Current visit: No Status: Chronic Patient did take 50 units of his Lantus this morning and had a hypoglycemic episode. We will hold his basal insulin for now. We will continue monitoring blood sugars before meals at bedtime we will add sliding scale insulin as needed. We will reevaluate in a.m. 2 diabetic diet 3 I did consult medical social consultant due to patient's noncompliance to his medications he has had hypoglycemic episodes in the past he appears disheveled and lives alone concerned that he may need home health or possible ECF placement Qualifiers: Diabetes mellitus complication status: with kidney complications Diabetes mellitus complication detail: with chronic kidney disease Diabetes mellitus assistant terminal manager insulin use: with assistant terminal manager use Chronic kidney disease stage: stage 3 (moderate) Qualified Code(s): E11.22 - Type 2 diabetes mellitus with diabetic chronic kidney disease; N18.3 - Chronic kidney disease, stage 3 ( moderate); Z79.4 - rn long term care (current) use of insulin (6) CKD (chronic kidney disease), stage III Current visit: No Status: Chronic 1 presently creatinine is 1.09 he appears to be stable at this time we will continue to monitor creatinine 2 we will avoid nephrotoxins 3 monitor intake and output daily weights (7) Elevated troponin Current visit: Yes Status: Acute 1 patient does not have any chest pain shortness of breath at this time presently troponin is 0.10. Suspect this is related to his CK D and demand ischemia from CHF. We will continue to trend troponins if any elevation we will contact cardiology (8) DVT prophylaxis Current visit: No Status: Acute Lovenox subcutaneous Internal Medicine - H&P: HPI Chief complaint: hypoglycemia Admitted From: Emergency Dept Plans for Post Hospital Care: Home History of present illness: Mr. Washington is a 72 year old male with known history of congestive heart failure CT diabetes hypertension hyperlipidemia LA in 10/28/15 anterior wall STEMI with drug-eluting stent to the [place]. Patient was found unresponsive this a.m. EMS was notified and his blood sugar was 37. He was given IV dextrose he did arouse and became combative and he was transported to the ER for further evaluation. Upon arrival he seemed to be more appropriate he admitted that he took his insulin this morning however he could not tell ER physicians how much or if he ate. He does not improve time he got up he denies any falls or other injuries. Apparently he has had episodes of hypoglycemia in the past according to the medics. Lab work was obtained which did reveal a troponin of 0.10 BNP was 1016 chest x-ray was suggestive of congestive heart failure CT of head was negative for intracranial abnormalities. Patient was fed and was given 20 mg of IV Lasix. He denies any chest pain shortness of breath and all pain nausea vomiting diarrhea fevers or chills. Patient has been admitted for further workup and evaluation. Presently patient is alert and appropriate. When asked why he came to the hospital he states I do not know I guess my blood sugar was low. Question patient about what his blood sugar was this a.m. prior to his insulin he said I do not know. I asked him how much insulin he takes he said he took 50 units in the morning. Patient does live alone independent no recent falls. When questioned about the preparation he states that he frequently eats at [employer] consisting of wolof fries cheeseburgers and Coke. He denies any recent weight loss weight gain or lower extremity swelling. He is unsure if he has been taking his Lasix however he states "I think I am out of those pills" . I asked if he receives any assistance from home health for anyone helps him with his medications and states no. I asked if he has any family members that live close by his states his daughter lives across [address] however she has not assist him or check up on him. He does not receive any Meals on Wheels or home health. Presently does not appear to be in respiratory distress. Lung sounds have faint crackles in the bases bilaterally. Heart sounds are regular S1-S2 no rubs clicks gallops murmurs noted denies any chest pain at this time. Abdomen soft and nontender. No pedal edema noted. He is alert oriented 3 cranial nerves II through XII are intact. He is hemodynamically stable at this time I reviewed this case with Dr Zavala who agrees with plan. Past Med Surg Social Fam HX - Past Medical History Medical history: CHF, coronary artery disease, diabetes, GERD, hyperlipidemia, hypertension, myocardial infarction Psychiatric history: anxiety, depression - Past Surgical History Surgical History: angioplasty/stent, pacemaker/AICD - Social History Smoking Status: Current every day smoker Packs per day: half a pack per day. Smokeless Tobacco Status: Yes Alcohol use: none Drug use: none - Family History Father Adopted: [place]: [place] Family Member Ethnicity: Non- Living Status: Age at : 81 Hx Family Cardiac Disorders: Yes Hx Family Respiratory Disorders: Yes Hx Family Cancer: Yes Hx Family GI Disorders: No Hx Family Genitourinary Disorders: No Hx Family Endocrine Disorder: No Hx Family Musculoskeletal Disorders: No Hx Family Neuromuscular Disorders: No Hx Family Neurologic Disorders: No Hx Family HEENT Disorders: No Hx Family Autoimmune Disorders: No Hx Family Reproductive Disorders: No Hx Family Psychosocial Disorders: No Hx Family Medical Disorders: No Mother Adopted: [place]: Rolanda Husain Family Member Ethnicity: Non- Living Status: Age at : 75 Hx Family Cardiac Disorders: Yes Hx Family Respiratory Disorders: Yes Hx Family Cancer: Yes Hx Family GI Disorders: Yes Hx Family Genitourinary Disorders: No Hx Family Endocrine Disorder: No Hx Family Musculoskeletal Disorders: No Hx Family Neuromuscular Disorders: No Hx Family Neurologic Disorders: No Hx Family HEENT Disorders: No Hx Family Autoimmune Disorders: No Hx Family Reproductive Disorders: No Hx Family Psychosocial Disorders: No Hx Family Medical Disorders: No Brother History Unknown: Yes Adopted: [place]: Danie Washington Family Member Ethnicity: Non- Living Status: Age at : 55 Cause of : Heart attack Hx Family Cardiac Disorders: Yes Hx Family Respiratory Disorders: Yes (Mother and father) Hx Family Cancer: Yes (Mother had cancer unsure of what kind.) Hx Family GI Disorders: Yes (Mother had ulcers) Hx Family Genitourinary Disorders: No Hx Family Endocrine Disorder: Yes (Father diabetic) Hx Family Musculoskeletal Disorders: Yes (Father had arthritis) Hx Family Neuromuscular Disorders: No Hx Family Neurologic Disorders: No Hx Family HEENT Disorders: No Hx Family Autoimmune Disorders: No Hx Family Reproductive Disorders: No Hx Family Psychosocial Disorders: No Hx Family Medical Disorders: No Internal Medicine - H&P: Meds ARIPiprazole [Abilify] 2 mg PO DAILY 10/28/15 [History] Gabapentin [Neurontin] 300 mg PO BID 10/28/15 [History] Insulin DETEMIR [Levemir] 50 unit SQ BID 10/28/15 [History] LORazepam [Ativan] 1 mg PO QID 10/28/15 [History] Niacin [Niaspan] 1,000 mg PO HS 10/28/15 [History] Omeprazole [PriLOSEC] 20 mg PO BID 10/28/15 [History] [place] Oil/[place]-3 Fatty Acids [Fish Oil 500 mg Softgel] 1 cap PO BID 10/28/15 [ History] Aspirin 81 mg PO DAILY #30 tab.chew 10/31/15 [Rx] Carvedilol [Coreg] 6.25 mg PO BIDWM #60 tablet 10/31/15 [Rx] Clopidogrel [Plavix] 75 mg PO DAILY #30 tablet 10/31/15 [Rx] Furosemide [Lasix] 40 mg PO BIDDIURETIC #60 tablet 10/31/15 [Rx] Lisinopril [Zestril] 2.5 mg PO DAILY #30 tablet 10/31/15 [Rx] Nitroglycerin 0.4 mg SL Q5MIN PRN #30 tab.subl 10/31/15 [Rx] Albuterol Sulfate [Ventolin Hfa] 2 puff IH Q4H PRN 11/02/16 [History] Ipratropium/Albuterol Neb [Duoneb] 3 ml IH Q6HR PRN 11/02/16 [History] 3 Allergy/AdvReac Type Severity Reaction Status Date / Time Penicillins Allergy Rash Verified 01/17/16 15:59 [id number]-Glt-Qbb Reductase Allergy Hives Verified 01/17/16 15:59 Inhibitor [Statins] All Systems PM: A 10-system review of systems was performed and is negative for pertinent findings except as documented above in the HPI. - Constitutional Constitutional: no chills, no fever(s), no night sweats - EENT Eyes: no change in vision, no discharge, no pain, no photophobia Nose, mouth and throat: no dysphagia, no nasal discharge, no neck pain, no sore throat - Cardiovascular Cardiovascular ROS IM: no chest pain, no diaphoresis, no dyspnea, no lightheadedness, no palpitations, no syncope - Respiratory Respiratory: no cough, no dyspnea, no wheezing, no excessive phlegm production - Gastrointestinal Gastrointestinal: no abdominal pain, no diarrhea, no hematemesis, no hematochezia, no melena, no nausea, no vomiting - Musculoskeletal Musculoskeletal ROS IM: no numbness, no tingling - Integumentary Integumentary IM: no rash, no unusual bruising - Neurological Neurological ROS: no confusion, no convulsions, no focal weakness, no numbness, no tingling, no tremor(s) - Hematologic/Lymphatic Hematologic/Lymphatic: no easy bruising - Constitutional Vitals: Temp Pulse Resp BP Pulse Ox 98.4 F 72 18 137/72 96 06/01/17 13:25 06/01/17 13:25 06/01/17 13:25 06/01/17 13:25 06/01/17 13:25 General appearance: Present: disheveled, A&O X 3, answers questions appropriately - Head Head exam: Present: atraumatic, normocephalic - Eye Eye exam: Present: PERRL, conjuntiva pink, sclera anicteric Pupils: Present: PERRL - Neck Neck exam general surgery: Present: supple, trachea midline. Absent: lymphadenopathy - Respiratory Respiratory exam: Present: rales. Absent: accessory muscle use, rhonchi, wheezes - Cardiovascular Cardiovascular exam: Present: RRR, +S1, +S2. Absent: diastolic murmur, gallop, rubs, systolic murmur - GI/Abdominal GI/Abdominal exam: Present: normal bowel sounds, soft, no peritoneal signs. Absent: distended, tenderness - Extremities Exam Extremities exam: Present: warm, radial pulses palpable and symmetrical. Absent : calf tenderness, cyanotic, pedal edema - Neurological Exam Neurological exam: Present: CN II-XII intact, oriented X3, no focal deficits. Absent: pronater drift, facial droop, speech deficit - Skin Skin exam: Present: dry, intact Internal Med - H&P Results - Labs CBC & Chem 7: 06/01/17 09:52 06/01/17 08:52 - EKG Data EKG shows normal: sinus rhythm - EKG Data Prior EKG available for review: yes When compared to previous EKG: there is no significant change - Diagnostic Studies Other Images Additional comments: Chest X-Ray 06/01/17 09:40 IMPRESSION: Findings are suggestive of congestive heart failure. D/ / Bety Yan MD / Bety Yan MD Interpreting Provider: Bety Yan MD Head CT 06/01/17 11:08 IMPRESSION: 1. No acute intracranial abnormality. 2. Mild age-appropriate diffuse atrophy with moderate chronic small vessel ischemic changes D/ / Jeffy Avery MD / Jeffy Avery MD Interpreting Provider: Jeffy Avery MD <Ana Zavala - Last Filed: 06/01/17 19:35> Date of Encounter: 06/01/17 Internal Medicine - H&P: HPI History of present illness: Mr. Washington is a 72 year old male All Systems PM: A 10-system review of systems was performed and is negative for pertinent findings except as documented above in the HPI. - Constitutional Vitals: Temp Pulse Resp BP Pulse Ox 97.9 F 75 20 123/70 95 06/01/17 17:01 06/01/17 17:01 06/01/17 17:01 06/01/17 17:01 06/01/17 17:01 Internal Med - H&P Results - Labs CBC & Chem 7: 06/01/17 09:52 06/01/17 08:52 - Attending Attestation I saw and examined pt. I have discussed with PEEL OVEN TENDER Ms Bae regarding management plan. Agree with the documentation. Pt has AMS, was found hypoglycemia to 37 on site. Mental status has improved. Pt also has signs of CHF fluid overload, he is not compliant with his diuretics. Will cont closely monitor pt's Glu and fluid status, cont diuretics.
[2017-06-01] MEDS: Insulin LISPRO 300 UNITS/3 ML VIAL SQ SCH ×2 (17:31→21:51)
[2017-06-01] MEDS: *HR* LORazepam 1 MG TABLET PO SCH ×2 (17:35→21:50)
[2017-06-01] MEDS: Furosemide 20 MG/2 ML VIAL IVP SCH (17:35)
[2017-06-01] MEDS: Niacin (24 HR) 500 MG TAB.ER.24H PO SCH (21:50)
[2017-06-01] MEDS: (Salmon Oil/Omega-3 Fatty Acids [Fish Oil 500 Mg Soft) PO SCH (21:51)
[2017-06-01] MEDS: Gabapentin 300 MG CAPSULE PO SCH (21:51)
[2017-06-02 03:42] LABS: Basophils # 0.1 K/mcL (0.0-0.2); Basophils % 0.8 %; Eosinophils # 0.4 K/mcL (0.0-0.6); Eosinophils % 4.2 %; Hematocrit 37.7 % (37.5-50.1); Hemoglobin 12.1 g/dL (12.9-16.9); Immature Granulocytes % 0.8 % (0-4); Immature Platelets 5.1 % (1.1-6.1); Lymphocytes # 2.6 K/mcL (0.6-4.6); Lymphocytes % 31.4 %; Mean Corpuscular HGB Conc 32.1 g/dL (31.6-35.5); Mean Corpuscular Volume 84.2 fL (83.0-100.0); Mean Platelet Volume 11.5 fL (9.4-12.4); Monocytes # 0.9 K/mcL (0.0-1.3); Monocytes % 10.8 %; Neutrophils # 4.3 K/mcL (1.6-8.9); Platelet Count 191 K/mcL (140-400); Red Blood Count 4.48 M/mcL (4.19-5.50)
[2017-06-02 03:56] LABS: Calcium 8.6 mg/dL (8.6-10.8); Chol/HDL Ratio 5.6 (0-4.9); Magnesium 1.8 mg/dL (1.6-2.6); Potassium 4.2 mEq/L (3.5-4.5)
[2017-06-02] MEDS: *HR* Enoxaparin 40 MG/0.4 ML SYRINGE SQ SCH (06:22)
[2017-06-02] MEDS: Furosemide 20 MG/2 ML VIAL IVP SCH ×2 (07:58→16:46)
[2017-06-02] MEDS: *HR* LORazepam 1 MG TABLET PO SCH ×4 (08:01→20:59)
[2017-06-02] MEDS: Gabapentin 300 MG CAPSULE PO SCH ×2 (08:01→20:59)
[2017-06-02] MEDS: Insulin LISPRO 300 UNITS/3 ML VIAL SQ SCH ×5 (08:01→20:59)
[2017-06-02] MEDS: Aspirin 81 MG TAB.CHEW PO SCH (08:01)
[2017-06-02] MEDS: ARIPiprazole 2 MG TABLET PO SCH (08:01)
[2017-06-02] MEDS: (Salmon Oil/Omega-3 Fatty Acids [Fish Oil 500 Mg Soft) PO SCH ×2 (08:02→21:24)
--- NOTE | 2017-06-02 09:56 | Internal Med Progress Note ---
<Toby Louise - Last Filed: 06/02/17 11:09> Date of Encounter: 06/02/17 Time of Encounter: 09:51 - Assessment and plan (1) Acute exacerbation of CHF (congestive heart failure) Current Visit: Yes Status: Acute Assessment and plan: Patient does not have CP, SOB, but non-compliant with low-sodium diet, and non- compliant with Lasix. BNP is elevated as well chest x-ray is indicative of CHF. Lung sounds have rales bilaterally. He was given Lasix 20 mg BID in ED. last echo dated 03/17/2016 did reveal an EF of 20 - 25% with severe diastolic and systolic dysfunction. - continue Lasix 20 mg BID - cards consult - <2g NaCl, cardiac diet - fluid restriction <1500 mL - echo pending - continuous cardiac monitoring - trending trops - O2 maintain SpO2 >92% - continue coreg, asa 81, plavix, lovenox, lisinopri, lasix, nitroglycerin PRN Qualifiers: Congestive heart failure type: unspecified congestive heart failure type Qualified Code(s): I50.9 - Heart failure, unspecified (2) Hypoglycemia Current Visit: Yes Status: Resolved Assessment and plan: Found unresponsive with BS 37. has resolved. - closely monitor BG - SSI - diabetic diet (3) Acute kidney injury superimposed on CKD Current Visit: Yes Status: Acute Assessment and plan: Cr on admission 1.09, hx CKD3. - Today Cr. 1.55, due to Cardiac condition will hold IVF and continue lasix, and closely monitor Cr (4) Tobacco abuse Current Visit: No Status: Chronic Assessment and plan: continues to smoke half pack a day, and not interested in quiting (5) Type 2 diabetes mellitus Current Visit: No Status: Chronic Assessment and plan: Took lantus without eating, BG 37 and became non-responsive - Basal Insulin hold for now - BG before meals, and at bedtime - ct SSI - diabetic diet - services tech - pending for non-complianc Qualifiers: Diabetes mellitus complication status: with kidney complications Diabetes mellitus complication detail: with chronic kidney disease Diabetes mellitus fdc insulin use: with exterminator helper use Chronic kidney disease stage: stage 3 (moderate) Qualified Code(s): E11.22 - Type 2 diabetes mellitus with diabetic chronic kidney disease; N18.3 - Chronic kidney disease, stage 3 ( moderate); Z79.4 - manager terminal (current) use of insulin (6) DVT prophylaxis Current Visit: No Status: Acute Assessment and plan: minna subQ - Subjective Interval history: Mr Washington is a 72 yo M on day 1 of admit 2/2 unresponsiveness and BS 37 w/ hx CHF, T2DM, HTN, HLD, DC anterior wall STEMI MARY[facility]OU in [place], and possible Rx noncompliance. Today he reports feeling a lot better then he did yesterday. he denies SOB, CP , inability to lay flat, or waking in the middle of the night with cough or SOB. - Constitutional Vitals: Temp Pulse Resp BP Pulse Ox 97.8 F 68 14 98/57 95 06/02/17 07:19 06/02/17 07:19 06/02/17 07:19 06/02/17 07:19 06/02/17 08:10 General appearance: Present: disheveled, A&O X 3, answers questions appropriately - Head Head exam: Present: atraumatic, normocephalic - Respiratory Respiratory exam: Present: CTAB. Absent: accessory muscle use, rales, rhonchi, wheezes - Cardiovascular Cardiovascular exam: Present: RRR, +S1, +S2. Absent: diastolic murmur, gallop, rubs, systolic murmur - GI/Abdominal GI/Abdominal exam: Present: normal bowel sounds, soft, no peritoneal signs. Absent: distended, tenderness Internal Medicine: Result - Labs CBC & Chem 7: 06/02/17 03:18 06/02/17 03:18 Labs: Short CBC 06/02/17 Range/Units 03:18 WBC 8.3 (4.3-11.1) K/mcL Hgb 12.1 L (12.9-16.9) g/dL Hct 37.7 (37.5-50.1) % Plt Count 191 (140-400) K/mcL Neutrophils # 4.3 (1.6-8.9) K/mcL BMP 06/02/17 03:18 Sodium 134 L Potassium 4.2 Chloride 102 Carbon Dioxide 23 BUN 23 Creatinine 1.55 H Glucose 148 H Calcium 8.6 Cardiac Enzymes 06/01/17 06/02/17 Range/Units 21:02 03:18 Troponin I 0.13 H* 0.12 H* (0-0.03) ng/mL Consult Discharge Plan - Plan Referrals: Denver Ellington MD [Primary Care Provider] - <Ramesh Colón P - Last Filed: 06/02/17 15:27> Date of Encounter: 06/02/17 - Constitutional Vitals: Temp Pulse Resp BP Pulse Ox 98.0 F 60 16 99/61 93 06/02/17 11:36 06/02/17 11:36 06/02/17 11:36 06/02/17 11:36 06/02/17 11:36 Internal Medicine: Result - Labs CBC & Chem 7: 06/02/17 03:18 06/02/17 03:18 Labs: Short CBC 06/02/17 Range/Units 03:18 WBC 8.3 (4.3-11.1) K/mcL Hgb 12.1 L (12.9-16.9) g/dL Hct 37.7 (37.5-50.1) % Plt Count 191 (140-400) K/mcL Neutrophils # 4.3 (1.6-8.9) K/mcL BMP 06/02/17 03:18 Sodium 134 L Potassium 4.2 Chloride 102 Carbon Dioxide 23 BUN 23 Creatinine 1.55 H Glucose 148 H Calcium 8.6 Cardiac Enzymes 06/01/17 06/02/17 Range/Units 21:02 03:18 Troponin I 0.13 H* 0.12 H* (0-0.03) ng/mL - Attending Attestation I examined this patient and my medical decision-making was reviewed with the Resident Physician. I agree with the documented findings, disposition and treatment plan as described except to the extent set forth below. Admitted with severe CHF exacerbation. Presently on IV diuretics. Noted that the elevated troponin but that can be multifactorial. We will await for echocardiogram. It is of further deterioration of the ejection fraction then we will consult cardiology. Close monitoring.
--- NOTE | 2017-06-02 17:14 | Electrocardiograph Report ---
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
--- NOTE | 2017-06-02 17:16 | Electrocardiograph Report ---
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
[2017-06-02] MEDS: Niacin (24 HR) 500 MG TAB.ER.24H PO SCH (20:59)
[2017-06-03] MEDS: *HR* Enoxaparin 40 MG/0.4 ML SYRINGE SQ SCH (06:15)
[2017-06-03 07:08] LABS: Hematocrit 39.3 % (37.5-50.1); Hemoglobin 12.5 g/dL (12.9-16.9); Mean Corpuscular HGB Conc 31.8 g/dL (31.6-35.5); Mean Corpuscular Hemoglobin 26.9 pg (28.0-33.3); Mean Corpuscular Volume 84.7 fL (83.0-100.0); Mean Platelet Volume 11.2 fL (9.4-12.4); Platelet Count 186 K/mcL (140-400); Red Blood Count 4.64 M/mcL (4.19-5.50)
[2017-06-03 07:21] LABS: BUN/Creatinine Ratio 19 (6-26); Blood Urea Nitrogen 25 mg/dL (8-26); Calcium 9.1 mg/dL (8.6-10.8); Carbon Dioxide 25 mEq/L (19-29); Chloride 103 mEq/L (98-109); Glucose 144 mg/dL (70-99); Osmolality,Calculated 287 (280-300); Potassium 4.3 mEq/L (3.5-4.5); Sodium 135 mEq/L (136-145); eGFR For African Americans > 60 (> 60); eGFR For Non-African Americans 52 (> 60)
[2017-06-03] MEDS: Furosemide 20 MG/2 ML VIAL IVP SCH ×2 (08:00→16:22)
[2017-06-03] MEDS: Aspirin 81 MG TAB.CHEW PO SCH (08:00)
[2017-06-03] MEDS: Insulin LISPRO 300 UNITS/3 ML VIAL SQ SCH ×4 (08:00→20:51)
[2017-06-03] MEDS: *HR* LORazepam 1 MG TABLET PO SCH ×4 (08:01→20:43)
[2017-06-03] MEDS: Gabapentin 300 MG CAPSULE PO SCH ×2 (08:01→20:43)
[2017-06-03] MEDS: ARIPiprazole 2 MG TABLET PO SCH (08:01)
[2017-06-03] MEDS: (Salmon Oil/Omega-3 Fatty Acids [Fish Oil 500 Mg Soft) PO SCH (08:07)
--- NOTE | 2017-06-03 13:12 | Internal Med Progress Note ---
<Toby Louise - Last Filed: 06/03/17 13:53> Date of Encounter: 06/03/17 Time of Encounter: 12:59 - Assessment and plan (1) Acute exacerbation of CHF (congestive heart failure) Current Visit: Yes Status: Acute Assessment and plan: Patient does not have CP, SOB, but non-compliant with low-sodium diet, and non- compliant with Lasix. BNP is elevated as well chest x-ray is indicative of CHF. Lung sounds have rales bilaterally. He was given Lasix 20 mg BID in ED. last echo dated 03/17/2016 did reveal an EF of 20 - 25% with severe diastolic and systolic dysfunction. Echo on 06/02 EF 30-35%. - continue Lasix 20 mg BID - <2g NaCl, cardiac diet - fluid restriction <1500 mL - continuous cardiac monitoring - O2 maintain SpO2 >92% - continue coreg, asa 81, plavix, lovenox, lisinopri, nitroglycerin PRN - hold nephrotoxic Rx Qualifiers: Congestive heart failure type: unspecified congestive heart failure type Qualified Code(s): I50.9 - Heart failure, unspecified (2) Hypoglycemia Current Visit: Yes Status: Resolved Assessment and plan: Found unresponsive with BS 37. has resolved. - closely monitor BG - SSI - diabetic diet (3) Acute kidney injury superimposed on CKD Current Visit: Yes Status: Acute Assessment and plan: Cr on admission 1.09, hx CKD3. - Today Cr. 1.55, due to Cardiac condition will hold IVF and continue lasix, and closely monitor Cr (4) Tobacco abuse Current Visit: No Status: Chronic Assessment and plan: continues to smoke half pack a day, and not interested in quiting (5) Type 2 diabetes mellitus Current Visit: No Status: Chronic Assessment and plan: Took lantus without eating, BG 37 and became non-responsive - Basal Insulin hold for now - BG before meals, and at bedtime - ct SSI - diabetic diet - insurance and financial services agent - pending for non-complianc Qualifiers: Diabetes mellitus complication status: with kidney complications Diabetes mellitus complication detail: with chronic kidney disease Diabetes mellitus longterm insulin use: with longterm use Chronic kidney disease stage: stage 3 (moderate) Qualified Code(s): E11.22 - Type 2 diabetes mellitus with diabetic chronic kidney disease; N18.3 - Chronic kidney disease, stage 3 ( moderate); Z79.4 - custodial (current) use of insulin (6) DVT prophylaxis Current Visit: No Status: Acute Assessment and plan: lovenox subQ - Subjective Interval history: Mr Washington is a 72 yo M on day 2 of admit 2/2 unresponsiveness and BS 37 w/ hx CHF, T2DM, HTN, HLD, RI anterior wall STEMI MARYLOU in [facility], and possible Rx noncompliance. Today he reports feeling a lot better then he did yesterday. he denies SOB, CP , inability to lay flat, or waking in the middle of the night with cough or SOB. - Constitutional Vitals: Temp Pulse Resp BP Pulse Ox 98.1 F 58 16 110/68 95 06/03/17 11:07 06/03/17 11:07 06/03/17 11:07 06/03/17 11:07 06/03/17 11:07 General appearance: Present: disheveled, A&O X 3, answers questions appropriately - Head Head exam: Present: atraumatic, normocephalic - Respiratory Respiratory exam: Present: CTAB. Absent: accessory muscle use, rales, rhonchi, wheezes - Cardiovascular Cardiovascular exam: Present: RRR - GI/Abdominal GI/Abdominal exam: Present: normal bowel sounds, soft, no peritoneal signs. Absent: distended, tenderness - Neurological Exam Neurological exam: Present: oriented X3 - Psychiatric Psychiatric exam: Present: normal affect, normal mood Internal Medicine: Result - Labs CBC & Chem 7: 06/03/17 07:00 06/03/17 07:00 Labs: Short CBC 06/03/17 Range/Units 07:00 WBC 8.0 (4.3-11.1) K/mcL Hgb 12.5 L (12.9-16.9) g/dL Hct 39.3 (37.5-50.1) % Plt Count 186 (140-400) K/mcL BMP 06/03/17 07:00 Sodium 135 L Potassium 4.3 Chloride 103 Carbon Dioxide 25 BUN 25 Creatinine 1.35 H Glucose 144 H Calcium 9.1 Consult Discharge Plan - Plan Referrals: Denver Ellington MD [Primary Care Provider] - <Ramesh Colón - Last Filed: 06/03/17 16:38> Date of Encounter: 06/03/17 - Constitutional Vitals: Temp Pulse Resp BP Pulse Ox 97.9 F 64 16 106/67 96 06/03/17 15:56 06/03/17 15:56 06/03/17 15:56 06/03/17 15:56 06/03/17 15:56 Internal Medicine: Result - Labs CBC & Chem 7: 06/03/17 07:00 06/03/17 07:00 Labs: Short CBC 06/03/17 Range/Units 07:00 WBC 8.0 (4.3-11.1) K/mcL Hgb 12.5 L (12.9-16.9) g/dL Hct 39.3 (37.5-50.1) % Plt Count 186 (140-400) K/mcL BMP 06/03/17 07:00 Sodium 135 L Potassium 4.3 Chloride 103 Carbon Dioxide 25 BUN 25 Creatinine 1.35 H Glucose 144 H Calcium 9.1 - Attending Attestation I examined this patient and my medical decision-making was reviewed with the Resident Physician. I agree with the documented findings, disposition and treatment plan as described except to the extent set forth below.
[2017-06-03] MEDS: Niacin (24 HR) 500 MG TAB.ER.24H PO SCH (20:42)
[2017-06-04] MEDS: *HR* Enoxaparin 40 MG/0.4 ML SYRINGE SQ SCH (05:38)
[2017-06-04 07:01] VITALS: BP 100/60
[2017-06-04 07:46] LABS: Hematocrit 40.5 % (37.5-50.1); Hemoglobin 12.7 g/dL (12.9-16.9); Mean Corpuscular HGB Conc 31.4 g/dL (31.6-35.5); Mean Corpuscular Hemoglobin 26.6 pg (28.0-33.3); Mean Corpuscular Volume 84.9 fL (83.0-100.0); Platelet Count 200 K/mcL (140-400); Red Blood Count 4.77 M/mcL (4.19-5.50); Red Cell Distribution Width 14.1 % (11.5-14.5)
[2017-06-04] MEDS: Gabapentin 300 MG CAPSULE PO SCH (07:59)
[2017-06-04] MEDS: ARIPiprazole 2 MG TABLET PO SCH (07:59)
[2017-06-04] MEDS: *HR* LORazepam 1 MG TABLET PO SCH (08:00)
[2017-06-04] MEDS: Furosemide 20 MG/2 ML VIAL IVP SCH (08:00)
[2017-06-04] MEDS: Aspirin 81 MG TAB.CHEW PO SCH (08:00)
[2017-06-04] MEDS: Insulin LISPRO 300 UNITS/3 ML VIAL SQ SCH (08:00)
[2017-06-04 08:38] LABS: BUN/Creatinine Ratio 20 (6-26); Blood Urea Nitrogen 28 mg/dL (8-26); Calcium 9.2 mg/dL (8.6-10.8); Carbon Dioxide 26 mEq/L (19-29); Chloride 103 mEq/L (98-109); Glucose 157 mg/dL (70-99); Osmolality,Calculated 291 (280-300); Potassium 4.4 mEq/L (3.5-4.5); Sodium 136 mEq/L (136-145); eGFR For African Americans > 60 (> 60); eGFR For Non-African Americans 50 (> 60)
--- NOTE | 2017-06-04 08:56 | Discharge Summary ---
<Toby Louise - Last Filed: 06/04/17 13:23> Date of Encounter: 06/04/17 Time of Encounter: 08:54 - Discharge Diagnosis (1) Acute exacerbation of CHF (congestive heart failure) Priority: Primary Status: Acute Qualifiers: Congestive heart failure type: unspecified congestive heart failure type Qualified Code(s): I50.9 - Heart failure, unspecified (2) Hypoglycemia Priority: Secondary Status: Resolved (3) Acute kidney injury superimposed on CKD Priority: Secondary Status: Acute (4) Tobacco abuse Priority: Secondary Status: Chronic (5) Type 2 diabetes mellitus Priority: Secondary Status: Chronic Qualifiers: Diabetes mellitus complication status: with kidney complications Diabetes mellitus complication detail: with chronic kidney disease Diabetes mellitus technician terminal and repeater insulin use: with fci use Chronic kidney disease stage: stage 3 (moderate) Qualified Code(s): E11.22 - Type 2 diabetes mellitus with diabetic chronic kidney disease; N18.3 - Chronic kidney disease, stage 3 ( moderate); Z79.4 - long-term (current) use of insulin (6) DVT prophylaxis Priority: Secondary Status: Acute - Discharge Medications Home Medications: ARIPiprazole [Abilify] 2 mg PO DAILY 10/28/15 [History] Gabapentin [Neurontin] 300 mg PO BID 10/28/15 [History] Insulin DETEMIR [Levemir] 50 unit SQ BID 10/28/15 [History] LORazepam [Ativan] 1 mg PO QID 10/28/15 [History] Niacin [Niaspan] 1,000 mg PO HS 10/28/15 [History] Omeprazole [PriLOSEC] 20 mg PO BID 10/28/15 [History] [place] [employer]/[place]-3 Fatty Acids [Fish Oil 500 mg Softgel] 1 cap PO BID 10/28/15 [ History] Aspirin 81 mg PO DAILY #30 tab.chew 10/31/15 [Rx] Carvedilol [Coreg] 6.25 mg PO BIDWM #60 tablet 10/31/15 [Rx] Clopidogrel [Plavix] 75 mg PO DAILY #30 tablet 10/31/15 [Rx] Furosemide [Lasix] 40 mg PO BIDDIURETIC #60 tablet 10/31/15 [Rx] Lisinopril [Zestril] 2.5 mg PO DAILY #30 tablet 10/31/15 [Rx] Nitroglycerin 0.4 mg SL Q5MIN PRN #30 tab.subl 10/31/15 [Rx] Albuterol Sulfate [Ventolin Hfa] 2 puff IH Q4H PRN 11/02/16 [History] Ipratropium/Albuterol Neb [Duoneb] 3 ml IH Q6HR PRN 11/02/16 [History] Allergies/Adverse Reactions: 3 Allergy/AdvReac Type Severity Reaction Status Date / Time Penicillins Allergy Rash Verified 01/17/16 15:59 Ygeocrl-Zhj-Irt Reductase Allergy Hives Verified 01/17/16 15:59 Inhibitor [Statins] Date of admission: 06/01/17 15:38 Primary care physician: Denver Ellington MD - Patient Status Disposition: Home, Self-Care Condition: Fair Functional capacity at discharge: independent ambulation Overall status at discharge: patient is progressing back to baseline - Discharge Instructions Instructions: Myocardial Infarction (DC), Pneumonia (DC) Follow Up With: Denver Ellington MD [Primary Care Provider] - 06/11/17 3:00 pm - Diet and Activity Activity: increase activity as tolerated Diet: other (cardiac diet) Interval History: Mr Washington is a 72 year old M who presented after being found down due to BG 37 and found to have an acute exacerbation of CHF. Patient's BG were closely monitored and placed on SSI. BNP 1016, Trop 0.13, 012, CXR - findings suggestive of CHF, CTA no acute intracranial abnormality, Echocardiogram LVEF 30 -35% with severe global and regional LV systolic dysfunction. Patient was placed on NaCl and Fluid restrictions, goal SpO2 >92%, and continued on coreg, asa 81, plavix, lovenox, lisinopri, lasix, nitroglycerin PRN. Patient also had DOMINIQUE on CKD on admission. Cr on Admission was 1.09 w/ hx CKD 3 , went to Cr 1.55. Resolved upon discharge. Hospital course: Mr. Washington is a 72 year old male - Time Spent with Patient Total time spent providing and/or coordinating discharge services: - Constitutional Vitals: Temp Pulse Resp BP Pulse Ox 97.6 F 59 16 100/60 94 06/04/17 06:57 06/04/17 06:57 06/04/17 06:57 06/04/17 06:57 06/04/17 06:57 General appearance: Present: disheveled, A&O X 3, answers questions appropriately - Head Head exam: Present: atraumatic, normocephalic - Respiratory Respiratory exam: Present: CTAB. Absent: accessory muscle use, rales, rhonchi, wheezes - Cardiovascular Cardiovascular exam: Present: RRR, +S1, +S2. Absent: diastolic murmur, gallop, rubs, systolic murmur - GI/Abdominal GI/Abdominal exam: Present: normal bowel sounds, soft, no peritoneal signs. Absent: distended, tenderness - Extremities Exam Extremities exam: Present: radial pulses palpable and symmetrical Additional comments: no pitting edema bilaterally <Ramesh Colón P - Last Filed: 06/04/17 18:37> Date of Encounter: 06/04/17 Date of admission: 06/01/17 15:38 Primary care physician: Denver Ellington MD Hospital course: Mr. Washington is a 72 year old male - Time Spent with Patient Total time spent providing and/or coordinating discharge services: - Constitutional Vitals: Temp Pulse Resp BP Pulse Ox 97.6 F 59 16 100/60 94 06/04/17 06:57 06/04/17 06:57 06/04/17 06:57 06/04/17 06:57 06/04/17 06:57 - Attending Attestation I examined this patient and my medical decision-making was reviewed with the Resident Physician. I agree with the documented findings, disposition and treatment plan as described except to the extent set forth below.
== END 2017-06-04 12:03 | disposition home or self-care (01) | DRG 638 ==
LOC: EMEROO 09:38 → 2ANU 09:38
PROVIDERS: ADMIT Internal Medicine; ATTEND Internal Medicine